=== PATIENT | male | born 1975 | race Caucasian/White ===

== ENCOUNTER 2022-04-29 18:40 | Emergency (ER) | payer SELFPAY ==
[~2022-04-29] VITALS: Ht 177.8 cm; Wt 74.8 kg
[2022-04-29 18:42] VITALS: BP 137/80
--- NOTE | 2022-04-29 19:25 | NUR ---
Patient does not wish to proceed with medical care recommended by DR. MALIK. Patient given information related to possible complications, up to and including , which could occur as a result of leaving hospital at this time. Patient verbalizes understanding of risks involved leaving against medical advice. Patient has signed AMA form.
== END 2022-04-29 19:25 | disposition left against medical advice (07) ==
LOC: MED 18:40
DX: Z02.89 Encounter for other administrative examinations (principal); V49.88XA Car occupant (driver) (passenger) injured in other specified transport accidents, initial encounter; Y93.89 Activity, other specified; Y92.89 Other specified places as the place of occurrence of the external cause; Y99.8 Other external cause status
CPT/HCPCS: 99281